=== PATIENT | female | born 1990 | race American Indian/Alaskan Native ===

== ENCOUNTER 2017-10-22 20:50 | Emergency (ER) | payer SELFPAY ==
[2017-10-22] MEDS ORDERED: TYLENOL PO ONE (22:09)
[2017-10-22] MEDS ORDERED: TYLENOL ONE (22:10)
[2017-10-22 22:21] LABS: Basophils % (Auto) 0.2 % (0.0-1.8); Eosinophils % (Auto) 0.1 % (0.0-4.3); Hematocrit 41.5 % (30.3-42.9); Lymphocytes # (Auto) 1.3 K/mm3 (1.2-5.4); Mean Corpuscular HGB Conc 34 % (30-34); Mean Corpuscular Hemoglobin 30 pg (28-32); Mean Corpuscular Volume 90 fl (79-97); Monocytes # (Auto) 0.7 K/mm3 (0.0-0.8); Monocytes % (Auto) 6.7 % (0.0-7.3); Platelet Count 219 K/mm3 (140-440); Red Blood Count 4.63 M/mm3 (3.65-5.03); Red Cell Distribution Width 13.6 % (13.2-15.2)
[2017-10-22 23:08] LABS: Alanine Aminotransferase 16 units/L (7-56); Albumin 4.1 g/dL (3.9-5); BUN/Creatinine Ratio 13; Blood Urea Nitrogen 9 mg/dL (7-17); Calcium 9.1 mg/dL (8.4-10.2); Hemolysis Index 2
[2017-10-23 00:03] VITALS: BP 110/60
--- NOTE | 2017-10-23 00:12 | Emergency Department Report ---
ED Neuro Deficit HPI - General Chief Complaint: Neuro Symptoms/Deficit Stated Complaint: BACK PAIN, HEADACHE Time Seen by Provider: 10/22/17 23:23 Source: patient Mode of arrival: Ambulatory Limitations: No Limitations - History of Present Illness Initial Comments: pt. is complaining of numbness in the hands and feet and says she the left is slightly better than right. no weakness. is also says she as low back pain of moderate intensity non radiating with no aggrav. or relieving factor. she as multiple sclerosis but as not been on any medications for seceral mths due to the fact she was breast feeding and Onset/Timin (week) -: Gradual Location: other (both hands and feet) Presenting Symptoms: Absent: Weak/Paralyzed One Side, Sudden, Severe Headache, Blurred/Loss of Vision, Facial Droop/Numbness, Unable to Speak Clearly Place: home Severity: mild Quality: numb Improves With: none Worsens With: none On Anticoagulants: No Associated Symptoms: denies other symptoms Treatments Prior to Arrival: none - Related Data Home Medications: Home Medications Medication Instructions Recorded Confirmed Last Taken Tysabri (NF) IV Q6W 10/22/17 Unknown Previous Rx's Medication Instructions Recorded Last Taken Type predniSONE [Deltasone] 50 mg PO QDAY #5 tablet 10/23/17 Unknown Rx Allergies/Adverse Reactions: Allergies Allergy/AdvReac Type Severity Reaction Status Date / Time No Known Allergies Allergy Verified 10/22/17 22:25 ED Review of Systems ROS: Stated complaint: BACK PAIN, HEADACHE Other details as noted in HPI Comment: All other systems reviewed and negative ED Past Medical Hx - Past Medical History Additional medical history: Multiple Sclerosis - Surgical History Past Surgical History?: No - Social History Smoking Status: Never Smoker Substance Use Type: None - Medications Home Medications: Home Medications Medication Instructions Recorded Confirmed Last Taken Type Tysabri (NF) IV Q6W 10/22/17 Unknown History predniSONE [Deltasone] 50 mg PO QDAY #5 tablet 10/23/17 Unknown Rx ED Neuro Physical Exam - General Limitations: No Limitations General appearance: alert, in no apparent distress - Head Head exam: Present: atraumatic, normocephalic - Eye Eye exam: Present: normal appearance - ENT ENT exam: Present: mucous membranes moist - Neck Neck exam: Present: normal inspection - Respiratory Respiratory exam: Present: normal lung sounds bilaterally. Absent: respiratory distress - Cardiovascular Cardiovascular Exam: Present: regular rate, normal rhythm. Absent: systolic murmur, diastolic murmur, rubs, gallop - GI/Abdominal GI/Abdominal exam: Present: soft, normal bowel sounds. Absent: tenderness - Rectal Rectal exam: Present: deferred - Extremities Exam Extremities exam: Present: normal inspection. Absent: tenderness - Back Exam Back exam: Present: normal inspection, tenderness (paraspinal lumbar ttp. no decreased rom.) - Psychiatric Psychiatric exam: Present: normal affect, normal mood - Skin Skin exam: Present: warm, dry, intact, normal color. Absent: rash ED Course Vital Signs 10/22/17 10/22/17 10/22/17 22:01 23:12 23:35 Temperature 98 F 98.4 F Pulse Rate 93 H 88 Respiratory 20 16 Rate Blood Pressure 125/78 110/60 Blood Pressure 131/80 [Left] O2 Sat by Pulse 100 99 99 Oximetry - Lab Data Result diagrams: 10/22/17 22:10 10/22/17 22:10 Lab Results 10/22/17 10/22/17 10/22/17 Range/Units 22:10 22:10 22:10 WBC 11.0 (4.5-11.0) K/mm3 RBC 4.63 (3.65-5.03) M/mm3 Hgb 14.0 (10.1-14.3) gm/dl Hct 41.5 (30.3-42.9) % MCV 90 (79-97) fl MCH 30 (28-32) pg MCHC 34 (30-34) % RDW 13.6 (13.2-15.2) % Plt Count 219 (140-440) K/mm3 Lymph % (Auto) 12.0 L (13.4-35.0) % [place] % (Auto) 6.7 (0.0-7.3) % Eos % (Auto) 0.1 (0.0-4.3) % Baso % (Auto) 0.2 (0.0-1.8) % Lymph # 1.3 (1.2-5.4) K/mm3 [place] # 0.7 (0.0-0.8) K/mm3 Eos # 0.0 (0.0-0.4) K/mm3 Baso # 0.0 (0.0-0.1) K/mm3 Seg Neutrophils % 81.0 H (40.0-70.0) % Seg Neutrophils # 8.9 H (1.8-7.7) K/mm3 Sodium 135 L (137-145) mmol/L Potassium 4.0 (3.6-5.0) mmol/L Chloride 96.7 L (98-107) mmol/L Carbon Dioxide 24 (22-30) mmol/L Anion Gap 18 mmol/L BUN 9 (7-17) mg/dL Creatinine 0.7 (0.7-1.2) mg/dL Estimated GFR > 60 ml/min BUN/Creatinine Ratio 13 % Glucose 91 (65-100) mg/dL Calcium 9.1 (8.4-10.2) mg/dL Total Bilirubin 0.90 (0.1-1.2) mg/dL AST 21 (5-40) units/L ALT 16 (7-56) units/L Alkaline Phosphatase 74 (35-129) units/L Total Protein 7.8 (6.3-8.2) g/dL Albumin 4.1 (3.9-5) g/dL Albumin/Globulin Ratio 1.1 % HCG, Qual Negative (Negative) Critical care attestation.: If time is entered above; I have spent that time in minutes in the direct care of this critically ill patient, excluding procedure time. ED Disposition Clinical Impression: Low back pain, Numbness and tingling in both hands Is pt being admited?: No Does the pt Need Aspirin: No Condition: Stable Instructions: Back Pain (ED) Additional Instructions: follow up with your neurologist as soon as possible Prescriptions: predniSONE [Deltasone] 50 mg PO QDAY #5 tablet Referrals: AYAAN PAREDES MD [Primary Care Provider] - 3-5 Days Time of Disposition: 00:15 Print Language: HONDURAN
== END 2017-10-23 00:35 | disposition home or self-care (01) ==
LOC: ED 20:50
DX: M54.5 Low back pain (principal); R20.0 Anesthesia of skin; G35 Multiple sclerosis
CPT/HCPCS: 36415; 80053; 84703; 85025; 96372; 99283; J2930